=== PATIENT | female | born 1960 | race Caucasian/White ===

== ENCOUNTER 2019-02-25 14:54 | Emergency (ER) | payer BC ==
[2019-02-25 15:08] VITALS: BP 110/73
[2019-02-25] MEDS ORDERED: Tetan/Diph/Pertus SYR(Tdap)* 0.5 ML SYR(BOOSTRIX) use SYR IM ONE (15:23)
--- NOTE | 2019-02-25 15:36 | ED ---
Upper Extremity Pain - HPI Summary HPI Summary: 58 yr old female with the complaint of right ring finger laceration. She cut her finger on a food can lid about an hour prior to arrival. She knows she had a tetanus shot in 2004, but she is not sure about 2013. She cleaned the wound with peroxide and squeezed it together. No numbness or tingling of the finger. She has no impairment of flexion or extension. - History of Current Complaint Chief Complaint: UCLaceration Stated Complaint: RIGHT HAND/RING FINGER LACERATION Time Seen by Provider: 02/25/19 15:09 - Allergies/Home Medications Allergies/Adverse Reactions: Allergies Allergy/AdvReac Type Severity Reaction Status Date / Time No Known Allergies Allergy Verified 02/25/19 15:08 PMH/Surg Hx/FS Hx/Imm Hx - Surgical History Surgery Procedure, Year, and Place: Tonsillectomy, 1982, [facility] Infectious Disease History: No Infectious Disease History: Denies: Traveled Outside the [place] in Last 30 Days - Social History Alcohol Use: None Substance Use Type: Reports: None Smoking Status (MU): Never Smoked Tobacco Review of Systems Constitutional: Negative Positive: Other - right medial dorsal laceration 1 cm over the dip of ring finger. All Other Systems Reviewed And Are Negative: Yes Physical Exam Triage Information Reviewed: Yes Vital Signs On Initial Exam: Initial Vitals Temp Pulse Resp BP Pulse Ox 98.6 F 70 16 110/73 100 02/25/19 15:04 02/25/19 15:04 02/25/19 15:04 02/25/19 15:04 02/25/19 15:04 Vital Signs Reviewed: Yes Appearance: Positive: Well-Appearing, No Pain Distress Skin: Positive: Warm, Skin Color Reflects Adequate Perfusion Eyes: Positive: EOMI Neck: Positive: Nontender Respiratory/Lung Sounds: Positive: Clear to Auscultation Cardiovascular: Positive: RRR Abdomen Description: Negative: Distended Musculoskeletal: Positive: Strength/ROM Intact, Other - right ring finger with 1 cm laceration over the medial dorsal DIP area . She had intact digital nerve sensation and normal cap refill. Normal flex and extend at the DIP joints, and the wound is well approximated already. Neurological: Positive: Alert, Oriented to Person Place, Time, CN Intact II-III Psychiatric: Positive: Normal - [place] Coma Scale Best Eye Response: 4 - Spontaneous Best Motor Response: 6 - Obeys Commands Best Verbal Response: 5 - Oriented Coma Scale Total: 15 Diagnostics - Vital Signs Vital Signs Temp Pulse Resp BP Pulse Ox 02/25/19 15:04 98.6 F 70 16 110/73 100 - Laboratory Lab Statement: Any lab studies that have been ordered have been reviewed, and results considered in the medical decision making process. Course/Dx - Course Course Of Treatment: 58 yr old with 1 cm laceration without need of suture repair. Wound irrigated with NS and sterile dressing and antibiotic ointment applied by nursing. Finger splint applied by nursing to the ring finger with marisol tape to the little finger. She has been instructed to use the splint for the next 7 days. may remove to clean wound and apply antibioticointment and dressings. - Diagnoses Provider Diagnoses: Laceration of right ring finger Discharge ED - Sign-Out/Discharge Documenting (check all that apply): Patient Departure All imaging exams completed and their final reports reviewed: No Studies - Discharge Plan Condition: Good Disposition: HOME Patient Education Materials: Laceration (ED) Referrals: Tomy Skelton MD [Primary Care Provider] - Additional Instructions: Use the splint for next seven days, and you may remove to clean wound and apply new antibiotic oinment and dressings. - Billing Disposition and Condition Condition: GOOD Disposition: Home
== END 2019-02-25 15:47 | disposition home or self-care (01) ==
LOC: UCCORT 14:54
DX: S61.214A Laceration without foreign body of right ring finger without damage to nail, initial encounter (principal); W26.8XXA Contact with other sharp object(s), not elsewhere classified, initial encounter; Y92.9 Unspecified place or not applicable; Z23 Encounter for immunization
CPT/HCPCS: 99213; G0463